=== PATIENT | female | born 1985 | race Caucasian/White ===

== ENCOUNTER 2018-03-27 12:30 | Inpatient (IN) | payer MEDICAID ==
[2018-03-27] MEDS ORDERED: OXYTOCIN 30 UNITS/LR 500 ML IV ×4 (13:00→21:00)
[2018-03-27] MEDS ORDERED: CARBOPROST 250 MCG INJ IM ×2 (13:00→21:00)
[2018-03-27] MEDS ORDERED: METHYLERGONOVINE 0.2 MG INJ IM ×2 (13:00→21:00)
[2018-03-27] MEDS ORDERED: LIDOCAINE 1% (MPF) 30 ML INJ INJ (13:00)
[2018-03-27] MEDS ORDERED: MISOPROSTOL 200 MCG TAB PR ×2 (13:00→21:00)
[2018-03-27] MEDS ORDERED: IBUPROFEN 600 MG TAB PO (13:00)
[2018-03-27] MEDS: LACTATED RINGER'S 1,000 ML IV* ×3 (13:11→22:30)
[2018-03-27] MEDS: BUTORPHANOL 2 MG INJ IV (13:12)
[2018-03-27 13:21] LABS: ADD MAN DIFF? NO
[2018-03-27 13:22] LABS: ABNORMAL IP MESSAGE 1; BASOPHILS % 0.3 % (0.0-2.0); EOSINOPHILS # 0.1 10^3/ul (0.0-0.5); EOSINOPHILS % 0.5 % (0.0-7.0); HEMATOCRIT 35.4 % (37.0-47.0); HEMOGLOBIN 12.2 g/dl (12.0-16.0); LYMPHOCYTES # 1.8 10^3/ul (0.8-2.9); LYMPHOCYTES % 11.9 % (15.0-51.0); MEAN CORPUSCULAR HEMOGLOBIN 32.4 pg (29.0-33.0); MEAN CORPUSCULAR HGB CONC 34.5 g/dl (32.0-37.0); MEAN CORPUSCULAR VOLUME 94.1 fl (82.0-101.0); MEAN PLATELET VOLUME 14.3 fl (7.4-10.4); MONOCYTE # 0.8 10^3/ul (0.3-0.9); MONOCYTES % 5.7 % (0.0-11.0); NEUTROPHIL # 11.9 10^3/ul (1.6-7.5); NEUTROPHILS % 80.6 % (39.0-77.0); PLATELET COUNT 120 10^3/UL (140-415); RED BLOOD COUNT 3.76 10^6/ul (4.20-5.40); RED CELL DISTRIBUTION WIDTH 14.6 % (11.5-14.5)
[2018-03-27 13:22] LABS: WHITE BLOOD COUNT 14.7 10^3/ul (4.8-10.8)
[2018-03-27 13:41] LABS: INR 0.83; PROTIME 11.5 Sec (11.9-14.9); PT RATIO 0.9
[2018-03-27 13:42] LABS: PARTIAL THROMBOPLASTIN TIME 23.4 Sec (25.0-35.0)
[2018-03-27 13:44] LABS: POSITIVE DIFF @See below
[2018-03-27] MEDS ORDERED: FENTAnyl 2MCG/ML-ROPIV 0.2% 100 ML (14:48)
[2018-03-27 15:13] LABS: RAPID PLASMA REAGIN NONREACTIVE (NR)
[2018-03-27] MEDS ORDERED: FENTAnyl 2MCG/ML-ROPIV 0.2% 100 ML BAG EPI (15:30)
[2018-03-27] MEDS ORDERED: NALOXONE (0.4 MG/ML) INJ IV (15:30)
[2018-03-27] MEDS: OXYTOCIN 30 UNITS/LR 500 ML IV ×2 (16:37→21:03)
[2018-03-27] MEDS ORDERED: ZOLPIDEM 5 MG TAB PO (21:00)
[2018-03-27] MEDS ORDERED: ONDANSETRON 4 MG INJ IV (21:00)
[2018-03-27] MEDS ORDERED: NA PHOSPHATE/BIPHOS 133 ML ENEMA PR (21:00)
[2018-03-27] MEDS ORDERED: METHYLERGONOVINE 0.2 MG TAB PO (21:00)
[2018-03-27] MEDS ORDERED: DIPHENHYDRAMINE 25 MG CAP PO (21:00)
[2018-03-27] MEDS: CEFAZOLIN 1 GM/50 ML (PMX) 50 ML IV (21:39)
[2018-03-27] MEDS: HYDROCODONE/APAP (5/325) TAB PO (21:39)
[2018-03-27] MEDS: SENNA/DOCUSATE NA (8.6MG/50MG) TAB PO (22:30)
[2018-03-28] MEDS: BENZOCAINE 20% 56 ML SPRAY TOP (00:02)
[2018-03-28] MEDS: WITCH HAZEL/GLYCERIN PAD PR (00:02)
[2018-03-28] MEDS: IBUPROFEN 600 MG TAB PO ×3 (00:02→23:56)
[2018-03-28] MEDS: LANOLIN 7 GM TUBE TOP ×2 (00:02→21:15)
[2018-03-28] MEDS: AMPICILLIN 2 GM/NS (PMX) 100 ML IV ×5 (00:02→23:56)
[2018-03-28] MEDS: HYDROCODONE/APAP (5/325) TAB PO ×2 (03:04→13:00)
[2018-03-28] MEDS: LACTATED RINGER'S 1,000 ML IV* ×3 (04:43→20:43)
[2018-03-28] MEDS: OXYTOCIN 30 UNITS/LR 500 ML IV (05:02)
[2018-03-28 08:53] LABS: ADD MAN DIFF? NO
[2018-03-28 08:57] LABS: WHITE BLOOD COUNT 20.7 10^3/ul (4.8-10.8)
[2018-03-28 08:57] LABS: ABNORMAL IP MESSAGE 1; BASOPHIL # 0.1 10^3/ul (0.0-0.1); BASOPHILS % 0.2 % (0.0-2.0); EOSINOPHILS # 0.1 10^3/ul (0.0-0.5); EOSINOPHILS % 0.6 % (0.0-7.0); HEMATOCRIT 35.1 % (37.0-47.0); HEMOGLOBIN 11.9 g/dl (12.0-16.0); LYMPHOCYTES % 14.3 % (15.0-51.0); MEAN CORPUSCULAR HEMOGLOBIN 32.2 pg (29.0-33.0); MEAN CORPUSCULAR HGB CONC 33.9 g/dl (32.0-37.0); MEAN CORPUSCULAR VOLUME 95.1 fl (82.0-101.0); MEAN PLATELET VOLUME 14.3 fl (7.4-10.4); MONOCYTE # 1.4 10^3/ul (0.3-0.9); MONOCYTES % 6.9 % (0.0-11.0); NEUTROPHIL # 15.9 10^3/ul (1.6-7.5); PLATELET COUNT 115 10^3/UL (140-415); RED BLOOD COUNT 3.69 10^6/ul (4.20-5.40); RED CELL DISTRIBUTION WIDTH 14.6 % (11.5-14.5)
[2018-03-28 09:08] LABS: POSITIVE DIFF @See below
[2018-03-28] MEDS: SENNA/DOCUSATE NA (8.6MG/50MG) TAB PO ×2 (09:10→21:15)
[2018-03-28] MEDS ORDERED: MAGNESIUM HYDROXIDE 30ML CUP PO (18:00)
[2018-03-28] MEDS ORDERED: BISACODYL 10 MG SUPP PR (18:00)
[2018-03-28] MEDS: MAGNESIUM HYDROXIDE 30ML CUP PO (18:07)
[2018-03-29] MEDS: HYDROCODONE/APAP (5/325) TAB PO (00:57)
[2018-03-29] MEDS: LACTATED RINGER'S 1,000 ML IV* (04:43)
[2018-03-29] MEDS: IBUPROFEN 600 MG TAB PO ×2 (06:22→12:23)
[2018-03-29] MEDS: AMPICILLIN 2 GM/NS (PMX) 100 ML IV (06:23)
[2018-03-29] MEDS: DIPHTH/TET/ACEL PERTUSS (ADULT) 0.5 ML VIAL IM* (09:00)
[2018-03-29] MEDS: MEASLES,MUMPS,RUBELLA VACCINE INJ SC* (09:00)
[2018-03-29] MEDS: VARICELLA VACCINE LIVE/PF 1,350 UNIT/0.5 ML ML SC* (09:00)
[2018-03-29] MEDS: SENNA/DOCUSATE NA (8.6MG/50MG) TAB PO (10:13)
== END 2018-03-29 15:48 | disposition home or self-care (01) | DRG 775 ==
LOC: OBT 12:30 → L-D 12:31 → OBT 12:46 → L-D 12:49 → PP1 22:32
PROVIDERS: Obstetrics & Gynecology
PROC: 10E0XZZ Delivery of Products of Conception, External Approach (ICD-10-PCS; principal; 2018-03-27)
PROC: 0KQM0ZZ Repair Perineum Muscle, Open Approach (ICD-10-PCS; 2018-03-27)
DX: O70.1 Second degree perineal laceration during delivery (principal); Z37.0 Single live birth; Z3A.38 38 weeks gestation of pregnancy
CPT/HCPCS: 62319; 85025; 85610; 85730; 86592; 86850; 86900; 86901; 88307; 99464

== ENCOUNTER 2019-02-24 14:01 | Emergency (ER) | payer MEDICAID | END 2019-02-24 14:27 | disposition home or self-care (01) | LOC: E/R 14:01 | DX: H10.9 Unspecified conjunctivitis (principal) | CPT/HCPCS: 99283; Z7502 ==